=== PATIENT | female | born 1990 | race Caucasian/White ===

== ENCOUNTER 2017-02-16 09:08 | Day surgery (SDC) | payer OTHER ==
--- NOTE | ~2017-02-16 | OP ---
Record Of [facility] [place]. [address] NAME: JEN GOMEZ : 86 STATUS : [facility] PAT#: [id number] AGE: 26 ADM/REG DATE : 02/16/17 MR#: [id number] REPORT SERV DATE: 02/17/17 DICTATED BY: CJ TRONCOSO. DATE: 02/16/17 REPORT STATUS : Draft TRANSCRIBED BY: MODTico DATE: 02/16/17 DATE OF PROCEDURE: 02/16/2017 PREOPERATIVE DIAGNOSES: 1. Septal deviation. 2. Bilateral inferior turbinate hypertrophy. 3. Chronic nasal obstruction. 4. 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 5. Bilateral chronic frontal sinusitis. 6. Bilateral chronic maxillary sinusitis. 7. Bilateral chronic sphenoid sinusitis. 8. Chronic headaches. POSTOPERATIVE DIAGNOSES: 1. Septal deviation. 2. Bilateral inferior turbinate hypertrophy. 3. Chronic nasal obstruction. 4. 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 5. Bilateral chronic frontal sinusitis. 6. Bilateral chronic maxillary sinusitis. 7. Bilateral chronic sphenoid sinusitis. 8. Chronic headaches. PROCEDURE: 1. Bilateral endoscopic frontal sinusotomy. 2. Bilateral endoscopic middle meatus antrostomy. 3. Bilateral endoscopic sphenoidotomy. 4. Septoplasty. 5. Bilateral inferior turbinoplasty. 6. Left endoscopic excision of the lia bullosa. ANESTHESIA: General. COMPLICATIONS: None. COUNTS: All counts were correct following the procedure. ESTIMATED BLOOD LOSS: 25 mL. PREOPERATIVE INFORMED CONSENT: We discussed risks and benefits of the surgery including but not limited to bleeding, infection, possible saddle nose deformity, possible septal perforation, possible CSF leak, possible ocular injury including blindness, possible persistent sinus disease despite surgery, possible persistent headaches despite surgery, possible need for revision surgery. She understands these risks and benefits of the surgery and consent is on the chart. Record Of [facility] [place]. [address] NAME: JEN GOMEZ : 86 STATUS : [facility] PAT#: [id number] AGE: 26 ADM/REG DATE : 02/16/17 MR#: [id number] REPORT SERV DATE: 02/17/17 DICTATED BY: CJ TRONCOSO DATE: 02/16/17 REPORT STATUS : Draft TRANSCRIBED BY: NEELAM DATE: 02/16/17 PROCEDURE IN DETAIL: The patient was brought to the operating suite and placed on operative table in supine position. General endotracheal anesthesia was initiated without incident. The patient's head and neck was cleaned, prepped, and draped in usual sterile fashion. Following this, using a 0-degree endoscope, the middle turbinate, inferior turbinate, uncinate processes, and the septum were injected with approximately 15 mL of 1% lidocaine and 1:100,000 of epinephrine for hemostasis starting on the left-hand side of the nose. Nasofrontal duct was cannulated using [place] illuminated wire using transillumination technique. Once the nasofrontal duct could be cannulated and the wire was in place, the balloon was advanced across the wire across the nasal frontal duct along its entire length, and then using a sickle knife, an incision was made in the lia bullosa of left middle turbinate. The lateral portion of the lia bullosa was removed using straight upbiting Serjio-Cut forceps. Attention was taken to the natural ostium of the maxillary sinus. The balloon wire was advanced across the infundibulum into the maxillary sinus again using the transillumination technique. Once the wire was in place, the balloon was advanced over the wire and dilated up to 10 atmospheres along the length of the infundibulum. Attention was taken to the right side of the nose. With similar fashion as described on the left, the right frontal duct was cannulated. The balloon was advanced over the wire and dilated up to 10 atmospheres and then this was also repeated for the right maxillary sinus along the infundibulum. The balloon was advanced over the wire and dilated up to 10 atmospheres. Attention was taken to the sphenoid. Starting on the right-hand side, the sphenoid ostium was visualized in the sphenoethmoid recess using a 0-degree camera and then the wire was advanced across the ostium and then balloon was advanced over the wire and dilated up to 10 atmospheres. This was repeated on the left-hand side. Attention was taken to the septum. Following this, a #15 blade scalpel was used to performed a left hemitransfixion incision down to the underlying septal cartilage. A mucoperichondrial flap was raised along the left side of the nasal septum using [place] and Viky elevators. The bony cartilaginous junction was using the [place] elevator and then the mucoperiosteum was raised off both sides of the bony nasal septum. A thin strip of the cartilaginous septum along the maxillary crest was removed using a #15 blade scalpel and a [place] elevator, allowing the cartilaginous septum to swing back in the midline. The maxillary crest was exposed using the [place] elevator and removed using the 6.0 mm. straight osteotome. The deviated bony nasal septum was taken down using open [place] forceps, as well as Lorri forceps. Once the septal deviation had been corrected, the left hemitransfixion incision was closed using interrupted 4-0 chromic suture. The Xomed turbinate shaver was then used to perform submucous resection of both inferior turbinates without difficulty and both inferior turbinates were infractured and both the medial and lateral surfaces were cauterized using the Harmonic scalpel. Both inferior turbinates were then outfractured. Breathe-Easy septal splints were then placed on either side of the nasal septum and sutured in the midline using 2-0 nylon suture. The nasopharynx was suctioned free of any blood Record Of [address] [address] NAME: JEN GOMEZ : 86 STATUS : [facility]#: [id number] AGE: 26 ADM/REG DATE : 02/16/17 MR#: [id number] REPORT SERV DATE: 02/17/17 DICTATED BY: CJ TRONCOSO DATE: 02/16/17 REPORT STATUS : Draft TRANSCRIBED BY: MODL DATE: 02/16/17 clots. The patient was awakened from anesthesia and taken to the recovery room in stable condition. KAYLA/NEELAM Cj Troncoso M.D. / [id number] CC: Solomon Barnett PA-C
[~2017-02-16 09:08] MED LIST: LEXAPRO10 PO; MAXALT10 MG PO
== END 2017-02-16 16:32 | disposition home or self-care (01) ==
LOC: SDC 09:08
PROVIDERS: Otolaryngology
PROC: 099R0ZZ Drainage of Left Maxillary Sinus, Open Approach (ICD-10-PCS; 2017-02-16)
PROC: 099Q0ZZ Drainage of Right Maxillary Sinus, Open Approach (ICD-10-PCS; 2017-02-16)
PROC: 099X4ZZ Drainage of Left Sphenoid Sinus, Percutaneous Endoscopic Approach (ICD-10-PCS; 2017-02-16)
PROC: 099W4ZZ Drainage of Right Sphenoid Sinus, Percutaneous Endoscopic Approach (ICD-10-PCS; 2017-02-16)
PROC: 09BM4ZZ Excision of Nasal Septum, Percutaneous Endoscopic Approach (ICD-10-PCS; 2017-02-16)
PROC: 09Q Ear, Nose, Sinus, Repair (ICD-10-PCS; 2017-02-16)
PROC: 09BL4ZZ Excision of Nasal Turbinate, Percutaneous Endoscopic Approach (ICD-10-PCS; 2017-02-16)
PROC: 099T4ZZ Drainage of Left Frontal Sinus, Percutaneous Endoscopic Approach (ICD-10-PCS; principal; 2017-02-16 11:00)
PROC: 099S4ZZ Drainage of Right Frontal Sinus, Percutaneous Endoscopic Approach (ICD-10-PCS; 2017-02-16 11:00)
DX: J32.9 Chronic sinusitis, unspecified (principal); J34.2 Deviated nasal septum; J34.3 Hypertrophy of nasal turbinates; J32.1 Chronic frontal sinusitis; J32.0 Chronic maxillary sinusitis; J32.3 Chronic sphenoidal sinusitis; Z79.899 Other long term (current) drug therapy; J45.909 Unspecified asthma, uncomplicated
CPT/HCPCS: 30520; 30999; 31240; 31256 ×2; 31276 ×2; 31287 ×2; 84703; 88300; 88305; J0690; J2250; J2405; J3010; A9270-GY; C1726